=== PATIENT | male | born 1940 | race Two or more races ===

== ENCOUNTER 2017-03-02 06:29 | Day surgery (SDC) | payer MEDICARE, OTHER ==
[~2017-03-02] VITALS: Ht 166.4 cm; Wt 73.2 kg
[~2017-03-02 06:29] MED LIST: ACET-784 PO; ASPI-1093 PO; CETI-260 PO; DSS100 PO; ESOM20CA31 PO; FLUT16H NASAL; OXYB5XL PO; SIMV-261 PO; [UNRECOGNIZED DRUG - OTHER] TP
[2017-03-02] MEDS ORDERED: MOXIFLOXACIN HCL 0.5% 3 ML OPHTHALMIC SOLUTION ONE (07:13)
[2017-03-02] MEDS ORDERED: TROPICAMIDE 1% 2 ML OPHTHALMIC SOLUTION ONE (07:13)
[2017-03-02] MEDS ORDERED: PHENYLEPHRINE HCL 2.5% 2 ML OPHTHALMIC SOLUTION ONE (07:13)
[2017-03-02] MEDS ORDERED: DICLOFENAC SODIUM 0.1% 2.5 ML OPHTHALMIC SOLUTION ONE (07:13)
[2017-03-02] MEDS ORDERED: RINGERS SOLUTION,LACTATED 500 ML IV ONE ×2 (07:15→08:00)
[2017-03-02] MEDS ORDERED: FLUT16H NASAL (07:35)
[2017-03-02] MEDS ORDERED: ASPI-1093 PO (07:35)
[2017-03-02] MEDS ORDERED: OXYB10TA4 PO (07:35)
[2017-03-02] MEDS ORDERED: ESOM20CA31 PO (07:35)
[2017-03-02] MEDS ORDERED: SIMV-261 PO (07:36)
[2017-03-02] MEDS ORDERED: IPRAHFA IH (07:36)
[2017-03-02] MEDS ORDERED: [UNRECOGNIZED DRUG - CODE] TP (07:36)
[2017-03-02] MEDS ORDERED: DSS100 PO (07:36)
[2017-03-02] MEDS ORDERED: CETI-260 PO (07:36)
[2017-03-02] MEDS ORDERED: SILD25 PO (07:36)
[2017-03-02] MEDS ORDERED: ACET-784 PO (07:36)
[2017-03-02] MEDS ORDERED: DICLOFENAC SODIUM 0.1% 2.5 ML OPHTHALMIC SOLUTION OD ONE (08:00)
[2017-03-02] MEDS ORDERED: MOXIFLOXACIN HCL 0.5% 3 ML OPHTHALMIC SOLUTION OD ONE (08:00)
[2017-03-02] MEDS: TROPICAMIDE 1% 2 ML OPHTHALMIC SOLUTION OD SCH ×2 (08:07→08:13)
[2017-03-02] MEDS: PHENYLEPHRINE HCL 2.5% 2 ML OPHTHALMIC SOLUTION OD SCH ×2 (08:07→08:13)
[2017-03-02] MEDS ORDERED: FentaNYL CITRATE-PF 100 MCG/2 ML VIAL IVP ONE (12:00)
[2017-03-02] MEDS ORDERED: MIDAZOLAM HCL 2 MG/2 ML VIAL IVP ONE (12:00)
[2017-03-02] MEDS ORDERED: DEXAMETHASONE SOD PHOS 4 MG/ML VIAL IVP ONE (17:36)
[2017-03-02] MEDS ORDERED: POVIDONE-IODINE 10% 15 ML SOLUTION UD TP ONE (17:36)
[2017-03-02] MEDS ORDERED: HYALURONATE SODIUM 12 MG/ML 0.8 ML SYRINGE IO ONE (17:36)
[2017-03-02] MEDS ORDERED: HYALURONATE SOD/CHONDROITIN SOD 0.5 ML VIAL IO ONE (17:36)
[2017-03-02] MEDS ORDERED: LIDOCAINE HCL/PF 1% 2 ML VIAL IM ONE (17:36)
[2017-03-02] MEDS ORDERED: TETRACAINE HCL VISCOUS 0.5% 5 ML OPHTHALMIC SOLUTION OD ONE (17:36)
== END 2017-03-02 10:55 | disposition home or self-care (01) ==
LOC: SURGERY 06:29
PROVIDERS: ATTEND Specialist
DX: H25.011 Cortical age-related cataract, right eye (principal); M54.5 Low back pain; M19.90 Unspecified osteoarthritis, unspecified site; J32.9 Chronic sinusitis, unspecified; Z98.890 Other specified postprocedural states; Z85.46 Personal history of malignant neoplasm of prostate
CPT/HCPCS: 66984; 93005; C1780; J7120; J1100; J2250; J3010; J3490

== ENCOUNTER 2017-07-13 07:23 | Day surgery (SDC) | payer MEDICARE, OTHER ==
[~2017-07-13] VITALS: Ht 167.6 cm; Wt 72.7 kg
[~2017-07-13 07:23] MED LIST changes: -ASPI-1093 PO; +ASPI-1182 PO; -CETI-260 PO; +CETI-290 PO; +RINGERS SOLUTION,LACTATED 500 ML IV ONE; +SILD25 PO; +[UNRECOGNIZED DRUG - CODE] TP; -[UNRECOGNIZED DRUG - OTHER] TP
[2017-07-13] MEDS ORDERED: FentaNYL CITRATE-PF 100 MCG/2 ML VIAL IVP ONE (07:24)
[2017-07-13] MEDS ORDERED: MIDAZOLAM HCL 2 MG/2 ML VIAL IVP ONE (07:24)
[2017-07-13] MEDS ORDERED: PHENYLEPHRINE HCL 2.5% 2 ML OPHTHALMIC SOLUTION ONE (07:29)
[2017-07-13] MEDS ORDERED: RINGERS SOLUTION,LACTATED 500 ML IV ONE (07:29)
[2017-07-13] MEDS ORDERED: DICLOFENAC SODIUM 0.1% 2.5 ML OPHTHALMIC SOLUTION ONE (07:29)
[2017-07-13] MEDS ORDERED: MOXIFLOXACIN HCL 0.5% 3 ML OPHTHALMIC SOLUTION ONE (07:29)
[2017-07-13] MEDS ORDERED: CYCLOPENTOLATE HCL 1% 2 ML OPHTHALMIC SOLUTION ONE (07:30)
[2017-07-13] MEDS: PHENYLEPHRINE HCL 2.5% 2 ML OPHTHALMIC SOLUTION OS SCH ×2 (08:12→08:17)
[2017-07-13] MEDS ORDERED: DICLOFENAC SODIUM 0.1% 2.5 ML OPHTHALMIC SOLUTION OS ONE (12:00)
[2017-07-13] MEDS ORDERED: MOXIFLOXACIN HCL 0.5% 3 ML OPHTHALMIC SOLUTION OS ONE (12:00)
[2017-07-13] MEDS ORDERED: CYCLOPENTOLATE HCL 1% 2 ML OPHTHALMIC SOLUTION OS ONE (12:00)
[2017-07-13] MEDS ORDERED: HYALURONATE SODIUM 12 MG/ML 0.8 ML SYRINGE IO ONE (16:01)
[2017-07-13] MEDS ORDERED: HYALURONATE SOD/CHONDROITIN SOD 0.5 ML VIAL IO ONE (16:01)
[2017-07-13] MEDS ORDERED: TETRACAINE HCL VISCOUS 0.5% 5 ML OPHTHALMIC SOLUTION ONE (16:01)
[2017-07-13] MEDS ORDERED: POVIDONE-IODINE 10% 15 ML SOLUTION UD ONE (16:01)
[2017-07-13] MEDS ORDERED: LIDOCAINE HCL 1% 20 ML VIAL ONE (16:01)
[2017-07-13] MEDS ORDERED: DEXAMETHASONE 4 MG TABLET ONE (16:01)
== END 2017-07-13 11:00 | disposition home or self-care (01) ==
LOC: SURGERY 07:23
PROVIDERS: ATTEND Specialist
DX: H25.012 Cortical age-related cataract, left eye (principal); E78.00 Pure hypercholesterolemia, unspecified; M19.90 Unspecified osteoarthritis, unspecified site; J32.9 Chronic sinusitis, unspecified; Z90.79 Acquired absence of other genital organ(s); Z85.46 Personal history of malignant neoplasm of prostate
CPT/HCPCS: 93005; J2250; J3010; J3490; J7120; J8540